=== PATIENT | female | born 2000 | race American Indian/Alaskan Native ===

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

== ENCOUNTER 2021-09-22 18:20 | Emergency (ER) | payer SELFPAY ==
[2021-09-22 18:25] VITALS: BP 128/94
== END 2021-09-22 22:00 | disposition left against medical advice (07) ==
LOC: ED 18:20
DX: R11.10 Vomiting, unspecified (principal); R42 Dizziness and giddiness; Z53.21 Procedure and treatment not carried out due to patient leaving prior to being seen by health care provider